=== PATIENT | female | born 1975 | race Caucasian/White ===

== ENCOUNTER 2017-09-03 17:58 | Emergency (ER) | payer MEDICAID ==
[2017-09-03] MEDS: HYDROCODONE/APAP (5/325) TAB PO (18:30)
== END 2017-09-03 18:41 | disposition home or self-care (01) ==
LOC: FTE 17:58 → E/R 18:41
DX: L03.012 Cellulitis of left finger (principal)
CPT/HCPCS: 10060; 99284-25